=== PATIENT | female | born 1960 | race Caucasian/White ===

== ENCOUNTER 2022-08-30 07:26 | Observation (INO) ==
--- NOTE | 2022-07-31 12:21 | PAT Medication Instructions ---
Medication Instructions Date of Service July 31, 2022 Home Medications Celebrex 1 dose PO QAM biotin 1 mg tablet 1 mg PO QAM cholecalciferol (vitamin D3) 25 mcg (1,000 unit) tablet (Vitamin D3) 25 mcg PO QAM folic acid 3 tab PO QAM hydroxychloroquine 200 mg tablet (Plaquenil) 200 mg PO QAM methotrexate 1 dose WK multivitamin 1 tab PO QAM omeprazole magnesium 20 mg tablet,delayed release (Prilosec OTC) 20 mg PO DAILY PRN gerd ASK your surgeon for instructions Celebrex 1 dose PO QAM ASK your prescriber and surgeon hydroxychloroquine 200 mg tablet (Plaquenil) 200 mg PO QAM methotrexate 1 dose WK STOP taking 2 weeks before surgery biotin 1 mg tablet 1 mg PO QAM DO NOT take the morning of surgery cholecalciferol (vitamin D3) 25 mcg (1,000 unit) tablet (Vitamin D3) 25 mcg PO QAM folic acid 3 tab PO QAM multivitamin 1 tab PO QAM Take morning of surgery With a small sip of water, OTHERWISE NOTHING TO EAT OR DRINK AFTER MIDNIGHT: omeprazole magnesium 20 mg tablet,delayed release (Prilosec OTC) 20 mg PO DAILY PRN gerd (if needed) Other Notes If you have any questions please call us at [phone] or [phone] or [phone] or [phone]
--- NOTE | 2022-08-03 10:02 | Anesthesiology Consultation ---
Date of Service August 03, 2022 Assessment & Plan (1) Encounter for pre-operative examination: Chart Review Chart Review: Acceptable Risk for Surgery and Patient seen in Pre Admission Testing Pt currently scheduled as 23 hours observation. Discussed with Dr. Souza. If surgeon decides to change patient to Same Day Joint, patient would be acceptable risk for TSA, pending patient is motivated, has good support and surgeon's office completes [facility] preop requirements. Pt has pessary in place- encouraged patient to discuss with surgeon if it need removed DOS (pt can self remove/replace pessary) Pt states that PNB in the right shoulder have not been effective in the past - unsure if needed DOS - will discuss with anesthesiologist DOS Per PAT appt on 08/03/22, patient denies any recent travel or large group activities. Pt is vaccinated for Covid. Will leave to surgeon's discretion if preop Covid testing needed. Educated on importance of using Covid precautions one week prior to surgery History Surgery Operation Date: 08/30/22 12:25 Proposed Procedures p Right Reverse Shoulder Arthroplasty - Patric Garcia MD Height/Weight Height: 5 ft 8.5 in Weight: 58.9 kg Allergies Allergy/AdvReac Type Severity Reaction Status Date / Time etanercept [From Enbrel] Allergy Rash Verified 07/31/22 10:32 Medications Home Medications Medication Instructions Recorded Confirmed Last Taken Celebrex 1 dose PO QAM 07/31/22 07/31/22 Unknown folic acid 1 tab PO QAM 07/31/22 08/03/22 Unknown hydroxychloroquine 200 mg tablet 200 mg PO QAM 07/31/22 07/31/22 Unknown (Plaquenil) methotrexate 1 dose WK 07/31/22 07/31/22 Unknown multivitamin 1 tab PO QAM 07/31/22 07/31/22 Unknown omeprazole magnesium 20 mg 20 mg PO DAILY PRN gerd 07/31/22 07/31/22 Unknown tablet,delayed release (Prilosec OTC) biotin 500 mcg capsule 500 mcg PO DAILY 08/03/22 08/03/22 Unknown cholecalciferol (vitamin D3) 125 125 mcg PO DAILY 08/03/22 08/03/22 Unknown mcg (5,000 unit) tablet (Vitamin D3) Past Medical History Medical History Bladder prolapse Has pessary in place Heartburn occasional Osteoarthritis Prediabetes Diet controlled Rectal prolapse Has pessary in place Rheumatoid arthritis Follows with rheum- stable at this time Scoliosis Superficial thrombosis of leg hx 1980s Vaginal prolapse Has pessary in place Exercise / Class Metabolic Activity II 4-5 Yardwork/Stairs/Walk up hill (one flight of stairs- no chest pain or SOB ) Past Family History Family History Other No family history of adverse response to anesthesia Past Surgical History Surgical History History of arthroscopic knee surgery Rt History of arthroscopy of shoulder BL History of carpal tunnel release History of cataract surgery History of colonoscopy History of decompression of ulnar nerve History of surgery laser treatment varicose veins Past Anesthesia History No Hx of Anesthesia Complications (with exception to chills post op ) and No Family Hx of Anesthesia Complications History of PONV No Hx of PONV and No Hx of Motion Sickness Social History Smoking Status: Never smoker Do You Dip or Chew Tobacco: No Hx Alcohol Use: No Hx Substance Use: No substance use type: does not use Review of Systems Patient denies chest pain, shortness of breath, dyspnea on exertion, cough, wheezing, palpitations. No hx of seizures, stroke, CO, apnea/snoring. No hx of DVTs or blood transfusions Physical Exam Vital Signs VITALS BP 103/67 P 85 TEMP 98.1 SP02 98% RESP 16 Constitutional no acute distress ENMT Mouth: no TMJ clicking Thyromental Distance: > or= 3.5 Finger Breadths (3.5) Mallampati Class: II Neck neck extension not limited Respiratory normal respiratory effort; no respiratory distress Auscultation: lungs clear to auscultation bilaterally; no wheezes Cardiovascular Rate/Rhythm: regular rate and regular rhythm Heart Sounds: no murmur Vessels: no carotid bruit Musculoskeletal Spine: no pain with cervical ROM Extremities: extremities normal to inspection Psychiatric Orientation: alert Lab Results Anesthesia Preop Results Results Anesthesia Widget: WBC 4.08 K/ul (4.8-10.8) L 08/03/22 Hgb 14.6 g/dl (12.0-16.0) 08/03/22 Hct 43.6 % (34.1-44.9) 08/03/22 Plt 281 K/uL (130-400) 08/03/22 Na 141 mmol/L (136-145) 08/03/22 K 4.4 mmol/L (3.5-5.1) 08/03/22 Cl 103 mmol/L (98-107) 08/03/22 CO2 33 mmol/L (21-32) H 08/03/22 BUN 15 mg/dl (6-23) 08/03/22 Creat 0.67 mg/dl (0.6-1.2) 08/03/22 Glucose Level 107 mg/dl (70-99(Fasting)) H 08/03/22 PT 10.5 Seconds (9.0-12.0) 08/03/22 PTT 29.6 Seconds (21.0-31.0) 08/03/22 INR 1.0 (0.9-1.1) 08/03/22 HA1c 6.7 % (4.5-5.6) H 08/03/22 Urine Color Yellow 08/03/22 Urine Appearance Clear (Clear) 08/03/22 Urine pH 6.0 (4.5-7.5) 08/03/22 Urine Specific [place] 1.010 (1.000-1.030) 08/03/22 Urine Protein Negative (Negative) 08/03/22 Urine Glucose (UA) Negative (Negative) 08/03/22 Urine Ketones Negative (Negative) 08/03/22 Urine Blood Negative (Negative) 08/03/22 Urine Nitrite Negative (Negative) 08/03/22 Urine Bilirubin Negative (Negative) 08/03/22 Urine Urobilinogen Negative (Negative) 08/03/22 Urine Leukocyte Esterase 1+ (Negative) H 08/03/22 Urine WBC (Auto) 1-5 /hpf (0-5) 08/03/22 Urine RBC (Auto) 0-4 /hpf (0-4) 08/03/22 Urine Hyaline Casts (Auto) 1-5 /lpf (0-5) 08/03/22 Urine Epithelial Cells (Auto) 0-5 /lpf (0-5) 08/03/22 Urine Bacteria (Auto) Negative (Negative) 08/03/22 Blood Type A Positive 08/03/22 Antibody Screen NEGATIVE 08/03/22 Testing Electrocardiogram Date: 08/03/22 Findings: + NSR @ (75bpm ) Normal EKG per cardio. Chest X-Ray Date: 08/03/22 Findings: + NAD Cervical Spine Date: 08/03/22 FINDINGS: No fractures or subluxations are identified. Degenerative changes are noted in the cervical spine. The alignment is anatomic. Prevertebral soft tissues are within normal limits. IMPRESSION: Degenerative changes without evidence of acute abnormality. COVID-19 Risk Screen Screening Information COVID-19 Screen Date: 08/03/22 Exposure 21 Days Family/Household +COVID Last 21 Days: No Exposure 10 Days Any COVID Exposure Last 10 Days: No Symptoms Last 10 Days Experienced COVID Sx Last 10 Days: No + COVID 0-90 Days COVID + in Last 0-90 Days: No Risk Plan COVID Risk Plan: No Risk Identified Patient Education COVID Preop Screening Education Complete: Yes
--- NOTE | 2022-08-29 14:19 | History & Physical Report ---
Date of Service August 29, 2022 Assessment & Plan (1) Rotator cuff arthropathy of right shoulder: Plan: Treatment options discussed with patient. She has failed conservative measures. Risks, benefits and alternatives to surgery including but not limited to infection, DVT, pain, stiffness, need for revision surgery, damage to blood vessels, damage to nerves, PE, , were discussed with the patient and they wish to proceed. Plan for right reverse total shoulder arthroplasty scheduled for [facility] on 08/30/[address] Garcia. All questions answered. She will follow up post op. History of Present Illness Chief Complaint: Right shoulder pain Primary Care Provider: KELLEY Henderson 61yo female with PMHx significant for GERD, RA, DM who presents with ongoing right shoulder pain. Has failed conservative measures. Pain is interfering with her daily activity. Prior history of arthroscopy with rotator cuff repair and biceps tenodesis. Patient denies headaches, sweats, fevers, chills, double vision, blurred vision, cough, sore throat, dysphagia, chest pain, sob, wheezing, n/v/d/c, numbness, tingling, fatigue, urinary symptoms, mood disorders. ROS positive for Right shoulder pain and stiffness. Allergies Allergy/AdvReac Type Severity Reaction Status Date / Time etanercept [From Enbrel] Allergy Rash Verified 07/31/22 10:32 Home Medications Medication Instructions Recorded Confirmed Type Celebrex 1 dose PO QAM 07/31/22 07/31/22 History folic acid 1 tab PO QAM 07/31/22 08/03/22 History hydroxychloroquine 200 mg tablet 200 mg PO QAM 07/31/22 07/31/22 History (Plaquenil) methotrexate 1 dose WK 07/31/22 07/31/22 History multivitamin 1 tab PO QAM 07/31/22 07/31/22 History omeprazole magnesium 20 mg 20 mg PO DAILY PRN gerd 07/31/22 07/31/22 History tablet,delayed release (Prilosec OTC) biotin 500 mcg capsule 500 mcg PO DAILY 08/03/22 08/03/22 History cholecalciferol (vitamin D3) 125 125 mcg PO DAILY 08/03/22 08/03/22 History mcg (5,000 unit) tablet (Vitamin D3) Past Med/Surg History Medical History Bladder prolapse Has pessary in place Heartburn occasional Osteoarthritis Prediabetes Diet controlled Rectal prolapse Has pessary in place Rheumatoid arthritis Follows with rheum- stable at this time Scoliosis Superficial thrombosis of leg hx 1980s Vaginal prolapse Has pessary in place Surgical History History of arthroscopic knee surgery Rt History of arthroscopy of shoulder BL History of carpal tunnel release History of cataract surgery History of colonoscopy History of decompression of ulnar nerve History of surgery laser treatment varicose veins Family History Other No family history of adverse response to anesthesia Social History Smoking Status: Never smoker Second Hand Exposure: No; Hx Alcohol Use: No Hx Substance Use: No Preferred Language: Tajik Communication Ability: Effective Director Of Testing Required: No Beliefs That Will Affect Care: None Current Living Situation: Spouse Feels Safe at Home: Yes Assistive Devices: Contacts and Glasses Review of Systems All systems reviewed & are unremarkable except as noted in HPI & below Physical Exam Constitutional: well developed and well nourished; no acute distress Eyes: PERRL, conjunctivae normal, anicteric sclerae ENMT: external ear and nose normal, oropharynx normal Neck: trachea midline, no thyromegaly Respiratory: normal respiratory effort, lungs clear to auscultation Cardiovascular: RRR, no murmur, no edema Musculoskeletal: Right shoulder: Tenderness anterior-inferior acromion, anterior glenoid. Positive impingement signs. FF to 170 degrees, abduction to 160 degrees. 4-/5 ER, 4+/5 IR, 3+/5 abduction Skin: no rashes, warm and dry Neurologic: patellar DTR's 2+ bilat, sensation intact Psychiatric: A+Ox3, euthymic affect Results & Data ([facility]) Diagnostic Findings Right shoulder X-rays demonstrate humeral head elevation with fragmentation and erosion of an os acromiale fragment. She has an MRI demonstrating a massive retracted full-thickness rotator cuff tear
[~2022-08-30 07:26] MED LIST: ACETAMINOPHEN 500 MG TAB PO SCH; BUPIVACAINE 0.5 % 5 MG/1 ML PF 10ML VIAL ONE; CeleBREX 200 MG CAP PO SCH; FAMOTIDINE 20 MG TAB PO SCH; GABAPENTIN 600 MG DOSE PO SCH; LIDOCAINE 2% 20 MG/ML 5 ML SYR IV ONE; LR 15ML/HR IV SCH; METOCLOPRAMIDE HCL 10 MG TABLET PO SCH; MIDAZOLAM HCL 1 MG/ML 2ML VIAL ONE; ONDANSETRON INJ 2 MG/ML 2 ML VIAL ONE; PROPOFOL IV EMULSION 10 MG/ML 20 ML VIAL IV ONE; ROCURONIUM BROMIDE 10 MG/ML 5 ML VIAL IV ONE; TRANEXAMIC ACID 1,000 MG **IV Intra-op IV SCH; TRANEXAMIC ACID 1,000 MG **IV Pre-op IV SCH; ceFAZolin 2000MG 2,000 MG/15 ML SYR IV SCH; dexAMETHasone 4 MG TAB PO SCH; fentaNYL citrate 100 MCG/2 ML VIAL ONE
[2022-08-30] MEDS ORDERED: ATROPINE SULFATE 0.1 MG/ML 10ML SYR IV PRN (07:38)
[2022-08-30] MEDS ORDERED: ePHEDrine sulfate 50 MG/ML AMP IV PRN (07:38)
[2022-08-30] MEDS ORDERED: fentaNYL citrate 100 MCG/2 ML VIAL IV PRN (07:38)
[2022-08-30] MEDS ORDERED: HYDROmorphone INJ 1 MG/ML SYRINGE IV PRN (07:38)
[2022-08-30] MEDS ORDERED: PHENYLEPHRINE 100MCG/ML 5ML SYR IV PRN (07:38)
[2022-08-30] MEDS ORDERED: MEPERIDINE HCL 25 MG/ML CARP/VIAL IV PRN (07:38)
[2022-08-30] MEDS ORDERED: LABETALOL HCL IV 5 MG/ML 20ML IV PRN (07:38)
[2022-08-30] MEDS ORDERED: ONDANSETRON INJ 2 MG/ML 2 ML VIAL IV PRN ×2 (07:38→14:54)
--- NOTE | 2022-08-30 07:43 | History & Physical Bridge Note ---
Date of Service August 30, 2022 History & Physical Bridge Note I have examined the patient, reviewed the History & Physical and in the interval since the performance of the History & Physical I have noted the following changes of clinical significance: no changes noted
[2022-08-30] MEDS ORDERED: ePHEDrine sulfate 50 MG/ML AMP ONE (11:45)
[2022-08-30] MEDS ORDERED: PHENYLEPHRINE HCL 10 MG/ML VIAL ONE (11:45)
[2022-08-30] MEDS ORDERED: NEOSTIGMINE METHYLSULFATE 1 MG/ML 10ML VIAL ONE (11:46)
[2022-08-30] MEDS ORDERED: GLYCOPYRROLATE 0.2 MG/ML VIAL ONE (11:46)
--- NOTE | 2022-08-30 12:09 | Operative Report ---
Post Operative Report Pre & Post Diagnosis Operation Date: 08/30/22 09:35 Pre-Op Diagnosis: Right Shoulder Osteoarthritis glenohumeral joint, rotator cuff arthropathy with failed rotator cuff repair, os acromiale Post-Op Diagnosis: Right Shoulder Osteoarthritis glenohumeral joint, rotator cuff arthropathy with failed rotator cuff repair, os acromiale, biceps dislocation with tendinopathy biceps tendon. I identified the patient and participated in the time-out.: Yes Procedure Operation Date: 08/30/22 09:35 Actual Procedures p Right Reverse Shoulder Arthroplasty(Right), biceps tenodesis, excision suture anchors and suture material- Patric Garcia MD Surgeon Patric Garcia MD Vehicle Cost Engineer Taco LARSEN Estimated Blood Loss 40 Findings Consistent with Post-Op Diagnosis Specimens Humeral head cut Drains 2 Hemovac Anesthesia Type General Regional Complications none Disposition Disposition: Recovery Room Indications 61-year-old female with history of rotator cuff repair in the past with failed rotator cuff repair rotator cuff arthropathy now advanced glenohumeral arthritis. Description of Procedure The patient was taken to the operating room and anesthetized under regional block and general anesthetic. The patient was positioned on the operating table in a 30 beach chair position with a towel roll under the medial border of the right scapula. The arm was draped free to be able to manipulate the shoulder as needed. The right upper extremity was prepped and draped in usual sterile fashion. Exam demonstrated thin individual good passive range of motion 180 degrees flexion 90 internal and external rotation 100 degrees abduction with subacromial crepitation with thin individual with excellent musculature. An anterior deltopectoral approach was performed. A longitudinal incision was made in the deltopectoral interval. The skin was incised sharply. Subcutaneous flaps were elevated off the fascia. The cephalic vein was dissected out and retracted lateral with the deltoid. The clavipectoral fascia was divided at the lateral margin of the conjoined tendon and extended up to the CA ligament. The following findings were noted: Subscapularis had a partial tear of the upper aspect and a dislocation of the biceps through that. the proximal biceps tendon had tendinopathy and was scarred into the subscapularis tendon. The supraspinatus tendon and infraspinatus were torn, the teres minor was intact. There was thickened scarred subacromial bursa. The upper centimeter of the pectoralis was released for inferior exposure. A self-retaining retractor was placed. The biceps tendon was tenodesed to the pectoralis tendon with #2 FiberWire. The proximal biceps was resected up to the part that was scarred into the subscapularis tendon and this portion of the tendon which is left intact within the tendon to add collagen to the repair. It is noted that there was no intra-articular portion of the subscapularis tendon still attached to the greater tuberosity. The subscapularis muscle fibers were split longitudinally at the level of the circumflex vessels. The circumflex vessels were identified and tied off with silk ties and divided laterally. A Kitner elevator was used to free up the inferior fibers of the subscapularis off of the capsule. The axillary nerve was identified with a tug test and protected with a blunt John retractor between the nerve and the capsule. The subscapularis tendon was then taken down off of the lesser tuberosity subperiosteally, a Vicryl traction suture was placed and a subperiosteal dissection was performed along the neck of the humerus as the arm was gradually externally rotated exposing the humeral head. The humeral head findings demonstrated arthritic changes with some exposed bone and articular thinning with inferior osteophytes. retractors were readjusted and the inferior osteophytes were all resected using an artist chisel. A Panda elevator was used to assist in releasing the capsule of the neck of the humerus. The capsule was divided with Garcia scissors down to the glenoid released off the anterior glenoid and the rotator interval was released to meet the capsular release and a 360 release of the subscapularis was accomplished. A Fukuda retractor was placed into the joint retracting the humeral head posterior. Glenoid findings demonstrated posterior superior glenoid articular wear down to bone grade 4 with some eburnation but no major bone loss. There was still some anterior to mid and inferior articular cartilage on the glenoid. The labrum was intact but degenerative. The intra-articular biceps was absent. The labrum was resected. an anterior-inferior and posterior inferior capsular release were performed with electrocautery and a Panda elevator on bone with the axillary nerve protected inferiorly by the retractor. Attention was then taken to the humeral preparation. The cutting guide was placed into the humeral head. It was positioned at 20 of retroversion. Oscillating saw was used to resect the humeral head giving the cut above the level of the posterior rotator cuff insertion site. The cut went through 1 anchor and another anchor was removed from the metaphysis. These were peek plastic type suture anchors with nonabsorbable suture material. There are also some cystic areas within the me taphysis that were curetted out. The humerus was then prepared for the stem. I used the ascend flex stem from [employer]. The sizing broaches were used followed by trial broaches up to a size 3B long which had the appropriate fit and fill. The appropriate sized cut protector was placed. The humerus was then retracted posterior to the glenoid. The glenoid was sized for a 25 baseplate. The guide for the baseplate was positioned in a 10 inferior tilt and the central drill hole was made. The reamer for the 25 baseplate was used. The central drill was widened for the peg. The Trendratingnier aequalis hydroxyapatite-coated 25 mm standard baseplate was impacted into position. The base plate was transfixed with superior and inferior locking screws and anterior and posterior compression screws with stable fixation. The fan reamer was used for the 36 millimeter glenoid sphere. After irrigation the 36 mm glenoid sphere was impacted onto the baseplate and the security screw was tightened. Attention was taken back to the humerus. The cut protector was removed and the +0 high offset humeral tray trial was assembled to the trial stem rotated appropriately to get bony coverage and then screwed in position. A trial reduction was performed. A +6 trial insert demonstrated good stability and no shuck. The trials were removed. 3 drill holes are made into the harder bone in the bicipital groove area and 3 #5 FiberWire sutures were placed transosseously. The canal was irrigated with pulsatile lavage saline solution. The final component was assembled. The final component was ascend flex 3B long PTC stem with a plus or high offset tray and a +6 reversed polyethylene insert. This was then impacted into the humerus with a tight press-fit. It was reduced to the glenoid sphere. Stability was verified. Subscapularis was repaired with the #5 FiberWire sutures using Won-Nishant suture technique. Lateral row soft tissue repair was performed with #2 FiberWire [id number] sutures. The pectoralis was repaired with #2 FiberWire [id number] sutures reinforcing the biceps tendon tenodesis. The arm was taken through a range of motion which demonstrated 160 degrees forward f lexion 110 degrees abduction and internal and external rotation to 70 degrees. The implant was stable through the range of motion tested. The wound was copiously irrigated. 2 Hemovac drains were placed. The deltopectoral interval was closed with [id number] #1 Vicryl sutures. The subcutaneous tissues were closed with 2-0 Vicryl sutures. The skin was closed with nikolai. Sterile dressings were applied and a shoulder immobilizer. Taco LARSEN, my physician construction management assistant acted as broker assistant throughout the procedure .He performed functions including patient positioning, arm positioning, prepping and draping, soft tissue retraction, instrument management, suture management and performed the subcutaneous and skin closure and will participate in the postoperative care of the patient. I attest to the content of the Intraoperative Record and any orders documented therein. Any exceptions are noted below.
--- NOTE | 2022-08-30 13:05 | Anesthesiology Progress Note ---
Date of Service August 30, 2022 Anesthesia Post Procedure Vital Signs Vital Signs: Temp Pulse Pulse Resp BP Pulse Ox O2 Del Method 08/30/22 12:50 60 14 113/70 99 Room Air 08/30/22 12:40 64 12 112/69 100 Oxymask 08/30/22 12:30 62 14 116/71 100 Oxymask 08/30/22 12:20 65 14 110/69 100 Oxymask 08/30/22 12:11 36.1 C L 76 12 111/67 100 Oxymask 08/30/22 08:08 36.5 C 73 20 130/83 100 Room Air O2 Flow Rate 08/30/22 12:50 08/30/22 12:40 10 08/30/22 12:30 10 08/30/22 12:20 10 08/30/22 12:11 10 08/30/22 08:08 Transfer of Care Handoff Completed per policy Notes Mental Status: alert / awake / arousable Patient Amnestic to Procedure: Yes Nausea / Vomiting: adequately controlled Pain: adequately controlled Airway Patency, RR, SpO2: stable & adequate BP & HR: stable & adequate Hydration State: stable & adequate Anesthetic Complications: no major complications apparent and Pt Satisfied with anesthetic care
--- NOTE | 2022-08-30 13:10 | XRay Report ---
RIGHT SHOULDER 2 VIEWS CLINICAL HISTORY: Postoperative examination FINDINGS: 2 portable views of the right shoulder are obtained. The skeletal structures are osteopenic . A right shoulder arthroplasty is in near anatomic alignment. No acute fracture is seen. Skin clips, a surgical drain, subcutaneous gas, and soft tissue swelling overlying the shoulder are expected pos toperative changes. The imaged right lung parenchyma appears clear. IMPRESSION: Expected postoperative findings status post right shoulder arthroplasty. No acute fractur e is seen. Electronically signed by: Johnny Suazo M.D. 08/30/2022 1:08 PM
[2022-08-30] MEDS ORDERED: FLUTICASONE PROPIONATE NA SPR 16 GM BTL PRN (14:54)
[2022-08-30] MEDS ORDERED: NALOXONE HCL 0.4 MG/1 ML VIAL/CARP IV PRN (14:54)
[2022-08-30] MEDS ORDERED: oxyCODONE HCL IR 5 MG TAB (IMMEDIATE RELEASE) PO PRN (14:54)
[2022-08-30] MEDS ORDERED: bisacodyL 10 MG SUPP PR PRN (14:54)
[2022-08-30] MEDS ORDERED: diphenhydrAMINE 50 MG/ML VIAL IV PRN (14:54)
[2022-08-30] MEDS ORDERED: MAGNESIUM HYDROXIDE SUSP 30 ML UDC PO PRN (14:54)
[2022-08-30] MEDS ORDERED: HYDROmorphone INJ 0.5 MG/0.5 ML SYR IV PRN (14:54)
--- NOTE | 2022-08-30 15:06 | Hospitalist Consultation ---
Date of Consultation August 30, 2022 Assessment & Plan (1) GERD (gastroesophageal reflux disease): Leda is a 61-year-old female with a past medical history of GERD, rheumatoid arthritis on methotrexate and hydroxychloroquine who underwent total reverse shoulder arthroplasty, we have been consulted for postoperative medical management. Rotator cuff arthropathy s/p Right Reverse Shoulder Arthroplasty(Right), biceps tenodesis, excision suture anchors and suture material- Patric Garcia MD Ambulation recommendations/restrictions, DVT prophylaxis, pain control per primary team Hemodynamically stable postoperatively Rheumatoid arthritis Patient has discussed her MTX/hydroxychloroquine and held for 2 weeks preop, was told to hold for 2 weeks postoperatively. This is reasonable. If patient were to have issues with flares in the future, could continue methotrexate and hydroxychloroquine through perioperative period if needed [PMID: [id number], [id number], [id number]]. Patient is not currently on a biologic DMARD. Plans to return to [facility] on outpatient follow-up, has not been on any biologic in a year. If she resumes these this would need to be held for future surgery Follow clinically at this time Avoid NSAIDs as noted GERD Continue Protonix, dose increased to 40 mg daily in the perioperative period. Patient has had poorly controlled GERD leading up to her procedure, but has not had melena/bleeding or epigastric pain. Would continue 40 mg Protonix dose for 6 weeks and then taper and attempt to cross 2 H2-rodrigo to reduce and renal/demineralization effects at that point if possible. If Celebrex needs to be resumed for chronic pain may need continued prophylaxis at that point Avoid NSAIDs. given aspirin use for prophylaxis, steroid administration, recent surgery, history of GERD Celebrex temporarily held Continue Tylenol Prediabetes Goal BSG [id number], POC glucose 130 Last A1c 6.7%, diet controlled Patient reportedly was supposed to start metformin as outpatient, will be doing this on return home but had not yet started at time of admission Will cover with weight-based conservative SSI while inpatient. Continue plan to start metformin when she returns home. Glucose checks AC/at bedtime - AM BMP to follow fasting BSG and Cr Patient is doing well hemodynamically stable at bedside. Medicine will sign off at this time, if additional concerns or abnormalities arise please feel free to contact us for continued review and recommendations. DVT prophylaxis: Per primary team Disposition: Medical/surgical Diet: DM 2 CODE STATUS: Full code History of Present Illness Attending Physician: Patric Garcia MD History of Present Illness Leda is a 61-year-old female with a past medical history of GERD, rheumatoid arthritis on methotrexate and hydroxychloroquine who underwent total reverse shoulder arthroplasty, we have been consulted for postoperative medical management. Leda is seen at the bedside with her Luther present. She feels a little groggy from anesthesia, but otherwise well had time bedside assessment. She is not having any chest pain, chest pressure, shortness of breath. She is a drain in her right shoulder surgical site draining sanguinous/serosanguineous material. She reports that she has a history of GERD for which she takes a PPI 20 mg daily. She has not had a history of GI bleeding, Jo's esophagus but has been on this for a long time. She feels like she has had difficulty with GERD in the last month and increased stress due to her shoulders, and has had intermittent feelings of reflux in the center of her chest. She does not have epigastric tenderness. She does take Celebrex daily. No melena/bright red blood per rectum. No fever/chills/syncope/presyncope. She is not on Pepcid normally. She reports she has a history of rheumatoid arthritis and while she does not get flares she has had a progression of joint disease which is multifactorial between RA and OA. She has been on multiple Biologics in the past, unfortunately was not able to tolerate Enbrel and developed an allergic rash, and has been on a variety of other Biologics including Humira which have not worked as well. She has not been on a biologic in the last year, anticipates returning to a biologic probably Humira but this is been deferred especially knowing that she was going to undergo orthopedic surgery this year. She does continue to take both Plaquenil and methotrexate. Other than GERD she denies any chest pain/chest pressure. No orthostatic symptoms, no orthopnea. Denies focal weakness. Medical History: Reviewed Medications: Reviewed Surgical History: Reviewed Allergies: Reviewed Social History: Reviewed Code Status: Full code Allergies Allergy/AdvReac Type Severity Reaction Status Date / Time etanercept [From Enbrel] Allergy Rash Verified 08/30/22 08:08 Home Medications Medication Instructions Recorded Confirmed Type Celebrex 1 dose PO QAM 07/31/22 08/30/22 History folic acid 1 tab PO QAM 07/31/22 08/30/22 History hydroxychloroquine 200 mg tablet 200 mg PO QAM 07/31/22 08/30/22 History (Plaquenil) methotrexate 1 dose WK 07/31/22 08/30/22 History multivitamin 1 tab PO QAM 07/31/22 08/30/22 History biotin 500 mcg capsule 500 mcg PO DAILY 08/03/22 08/30/22 History cholecalciferol (vitamin D3) 125 125 mcg PO DAILY 08/03/22 08/30/22 History mcg (5,000 unit) tablet (Vitamin D3) fluticasone propionate 50 1 spray intranasal DAILY PRN 08/30/22 08/30/22 History mcg/actuation nasal Allergy Symptoms spray,suspension pantoprazole 20 mg tablet,delayed 20 mg PO DAILY 08/30/22 08/30/22 History release (Protonix) Patient History Medical History Bladder prolapse Has pessary in place Heartburn occasional Osteoarthritis Prediabetes Diet controlled Rectal prolapse Has pessary in place Rheumatoid arthritis Follows with rheum- stable at this time Scoliosis Superficial thrombosis of leg hx 1980s Vaginal prolapse Has pessary in place Surgical History History of arthroscopic knee surgery Rt History of arthroscopy of shoulder BL History of carpal tunnel release History of cataract surgery History of colonoscopy History of decompression of ulnar nerve History of surgery laser treatment varicose veins Family History Other No family history of adverse response to anesthesia Social History Smoking Status: Never smoker Second Hand Exposure: No; Do You Dip or Chew Tobacco: No; Hx Alcohol Use: No Hx Substance Use: No Preferred Language: Mongolian Communication Ability: Effective Blasting Clay Miner Required: No Beliefs That Will Affect Care: None Current Living Situation: Spouse Feels Safe at Home: Yes Safety Concerns: Feels Safe At This Time Assistive Devices: Contacts and Glasses Review of Systems Review of Systems: All systems reviewed & are unremarkable except as noted in HPI & below Physical Exam Physical Exam: General: A&Ox3. NAD. Somnolent, but is not fall asleep during exam and answers questions appropriately HEENT: Atraumatic, normocephalic. Vision/hearing grossly intact. Pupils equal and reactive to light Pulm: Lungs grossly clear, breathing unlabored symmetrical chest rise. No increase in work of breathing. No respiratory distress. Cardiac: RRR, -mrg. Radial pulses intact and symmetrical. Abdominal: No epigastric tenderness, no other tenderness, no rebound, nondistended, soft. BS present. Extremities: Right shoulder in postoperative dressing, drain in place draining sanguinous/slightly serosanguineous material. Sensation to soft touch in fingertips improving, sensation normal in left hand. Radial pulse is intact bilaterally Results & Data Results & Data ([facility]) Vital Signs (Past 12 Hours) Vital Signs Temp Pulse Pulse Resp BP Pulse Ox O2 Del Method 08/30/22 14:45 36.5 C 92 H 16 109/67 96 Room Air 08/30/22 13:55 36.7 C 71 12 118/70 96 Room Air 08/30/22 13:40 77 13 109/66 97 Room Air 08/30/22 13:10 66 12 114/67 99 Room Air 08/30/22 12:50 60 14 113/70 99 Room Air 08/30/22 13:25 67 14 120/70 99 Room Air 08/30/22 13:00 36.1 C L 60 12 110/70 99 Room Air 08/30/22 12:40 64 12 112/69 100 Oxymask 08/30/22 12:30 62 14 116/71 100 Oxymask 08/30/22 12:20 65 14 110/69 100 Oxymask 08/30/22 12:11 36.1 C L 76 12 111/67 100 Oxymask 08/30/22 08:08 36.5 C 73 20 130/83 100 Room Air O2 Flow Rate 08/30/22 14:45 08/30/22 13:55 08/30/22 13:40 08/30/22 13:10 08/30/22 12:50 08/30/22 13:25 08/30/22 13:00 08/30/22 12:40 10 08/30/22 12:30 10 08/30/22 12:20 10 08/30/22 12:11 10 08/30/22 08:08 PG Care Time/CCT Total # of Minutes Spent Total Time Spent with Patient: Total time spent is greater than 50% in coordination of care (as documented) at patient's floor/unit and/or counseling patient: Coding Level of Care Code INP/OBS CONSULT LVL 4, 60 MIN Diagnoses GERD (gastroesophageal reflux disease) K21.9
[2022-08-30] MEDS: SODIUM CHLORIDE 0.9% 1000ML 1,000 ML IV SCH (15:26)
[2022-08-30] MEDS: ACETAMINOPHEN 500 MG TAB PO SCH ×2 (15:28→20:35)
[2022-08-30] MEDS ORDERED: DEXTROSE 50% 50 ML SYRINGE IV PRN (15:44)
[2022-08-30] MEDS ORDERED: CARBOHYDRATES FOR HYPOGLYCEMIA PO PRN (15:44)
[2022-08-30] MEDS ORDERED: GLUCAGON FOR INJ 1 MG VIAL SQ PRN (15:44)
[2022-08-30] MEDS ORDERED: GLUCOSE 40% GEL 15 GM TUBE PO PRN (15:44)
[2022-08-30] MEDS ORDERED: GLUCOSE 10 TAB/TUBE PO PRN (15:44)
[2022-08-30] MEDS: INSULIN ASPART PER UNIT SC SCH ×2 (18:18→20:28)
[2022-08-30] MEDS: ceFAZolin 1000MG 1,000 MG/7.5 ML SYR IV SCH (18:35)
[2022-08-30] MEDS: DOCUSATE SODIUM 100 MG CAP PO SCH (20:35)
[2022-08-31] MEDS: ceFAZolin 1000MG 1,000 MG/7.5 ML SYR IV SCH (00:10)
[2022-08-31] MEDS: SODIUM CHLORIDE 0.9% 1000ML 1,000 ML IV SCH (01:53)
[2022-08-31] MEDS: ACETAMINOPHEN 500 MG TAB PO SCH ×2 (05:01→12:13)
--- NOTE | 2022-08-31 07:05 | Orthopedic Progress Note ---
Date of Service August 31, 2022 Assessment & Plan (1) Rotator cuff arthropathy of right shoulder: Plan: Postop day #1 right reverse total shoulder arthroplasty -PT/OT: Elbow/wrist/hand motion, shrugs, pendulums. No formal therapy of his shoulder. -AM labs pending -DVT prophylaxis: SCDs, aspirin 81 mg daily -Pain management as written -Discharge planning: Plan on discharge home later today. Admission and Anticipated Discharge Date Admission Date: August 30, 2022 Subjective Patient is postop day #1 right reverse total shoulder arthroplasty. She is doing well this morning. Pain is well controlled. No other complaints. Denies chest pain, shortness of breath, nausea/vomiting/diarrhea, headache/dizziness. Review of Systems Review of Systems: All systems reviewed & are unremarkable except as noted in Subjective Physical Exam Physical Exam: Right shoulder: Dressing is clean, dry, intact. Sling in place. Fingers are mobile with good corporate bond trader strength. Hemovac on suction. Distally neurovascular status and sensation intact. Constitutional: WD/WN, vitals as above Results & Data ([facility]) Vital Signs (Past 12 Hours) Vital Signs Temp Pulse Pulse Resp BP Pulse Ox O2 Del Method 08/31/22 04:35 36.8 C 81 16 111/71 96 Room Air 08/30/22 23:18 93 H 96 Room Air 08/30/22 22:31 36.8 C 98 H 18 104/63 95 Room Air
[2022-08-31] MEDS ORDERED: MULTIVITAMIN TAB PO SCH ×2 (09:00)
[2022-08-31] MEDS ORDERED: FOLIC ACID 1 MG TAB PO SCH (09:00)
[2022-08-31] MEDS ORDERED: PANTOprazole 40 MG TAB PO SCH ×2 (09:00)
[2022-08-31] MEDS ORDERED: ASPIRIN 81 MG ECTAB PO SCH (09:00)
[2022-08-31] MEDS ORDERED: CELEBREX 200 MG PO SCH (09:00)
[2022-08-31] MEDS ORDERED: BIOTIN 500 MCG PO SCH (09:00)
[2022-08-31] MEDS ORDERED: CHOLECALCIFEROL 5,000 UNITS 125 MCG TAB PO SCH (09:00)
[2022-08-31 09:16] LABS: Basophils # (auto) 0.02 K/uL (0-0.2); Basophils % (auto) 0.3 %; Eosinophils # (auto) 0.04 K/uL (0-0.50); Eosinophils % (auto) 0.7 %; Hematocrit (blood only) 37.2 % (34.1-44.9); Hemoglobin 12.4 g/dl (12.0-16.0); Immature Granulocytes # (auto) 0.02 K/uL (0.00-0.02); Immature Granulocytes % (auto) 0.3 %; Lymphocytes # (auto) 1.05 K/uL (1.2-3.4); Lymphocytes % (auto) 18.2 %; Mean Corpuscular Hgb Conc 33.3 g/dL (32.0-36.0); Monocytes # (auto) 0.61 K/uL (0.24-0.82); Monocytes % (auto) 10.6 %; Neutrophils # (auto) 4.04 K/uL (1.4-6.5); Neutrophils % (auto) 69.9 %; Platelet Count 235 K/uL (130-400); RDW Coefficient of Variation 12.6 % (11.5-14.5); White Blood Count 5.78 K/ul (4.8-10.8)
[2022-08-31] MEDS: INSULIN ASPART PER UNIT SC SCH ×2 (09:20→12:46)
[2022-08-31] MEDS: DOCUSATE SODIUM 100 MG CAP PO SCH (09:24)
[2022-08-31 09:50] LABS: BUN Creatinine Ratio 24.2 (10-20); Calcium 8.2 mg/dl (8.5-10.1); Creatinine Clr Calc Pharmacy 85.6 ml/min; Est GFR (African American) 111.2 ml/min; Potassium 3.6 mmol/L (3.5-5.1)
--- NOTE | 2022-09-01 13:46 | Discharge Summary ---
Date of Service September 01, 2022 Admission HPI Per Admitting Provider 61yo female with PMHx significant for GERD, RA, DM who presents with ongoing right shoulder pain. Has failed conservative measures. Pain is interfering with her daily activity. Prior history of arthroscopy with rotator cuff repair and biceps tenodesis. Patient denies headaches, sweats, fevers, chills, double vision, blurred vision, cough, sore throat, dysphagia, chest pain, sob, wheezing, n/v/d/c, numbness, tingling, fatigue, urinary symptoms, mood disorders. ROS positive for Right shoulder pain and stiffness. Admission Exam Per Admitting Provider Constitutional: well developed and well nourished; no acute distress Eyes: PERRL, conjunctivae normal, anicteric sclerae ENMT: external ear and nose normal, oropharynx normal Neck: trachea midline, no thyromegaly Respiratory: normal respiratory effort, lungs clear to auscultation Cardiovascular: RRR, no murmur, no edema Musculoskeletal: Right shoulder: Tenderness anterior-inferior acromion, anterior glenoid. Positive impingement signs. FF to 170 degrees, abduction to 160 degrees. 4-/5 ER, 4+/5 IR, 3+/5 abduction Skin: no rashes, warm and dry Neurologic: patellar DTR's 2+ bilat, sensation intact Psychiatric: A+Ox3, euthymic affect Principal Diagnosis Right shoulder rotator cuff arthropathy Discharge Exam Right shoulder: Dressing is clean, dry, intact. Sling in place. Fingers are mobile with good forensic nurse strength. Hemovac on suction. Distally neurovascular status and sensation intact. Constitutional WD/WN, vitals as above Discharge Data Allergies Allergy/AdvReac Type Severity Reaction Status Date / Time etanercept [From Enbrel] Allergy Rash Verified 08/30/22 08:08 Consultations 08/25/22 10:03 Consult Hospitalist Routine Procedures Performed Operation Date: 08/30/22 09:35 Actual Procedures p Right Reverse Shoulder Arthroplasty(Right) - Patric Garcia MD Ordered Studies 08/30/22 05:00 US - OR guided needle placemen Routine Hospital Course (1) Rotator cuff arthropathy of right shoulder: Postop day #1 right reverse total shoulder arthroplasty -PT/OT: Elbow/wrist/hand motion, shrugs, pendulums. No formal therapy of his shoulder. -AM labs pending -DVT prophylaxis: SCDs, aspirin 81 mg daily -Pain management as written -Discharge planning: Plan on discharge home later today. Lab Results 08/30/22 08/30/22 08/30/22 Range/Units 07:49 17:30 20:22 WBC (4.8-10.8) K/ul RBC (3.93-5.22) M/uL Hgb (12.0-16.0) g/dl Hct (34.1-44.9) % MCV (80.0-100.0) fL MCH (25.0-34.0) pg MCHC (32.0-36.0) g/dL RDW Std Deviation (36.4-46.3) fL RDW Coeff of Emma (11.5-14.5) % Plt Count (130-400) K/uL MPV (9.4-12.3) fL Immature Gran % (Auto) % Neut % (Auto) % Lymph % (Auto) % Cecil % (Auto) % Eos % (Auto) % Baso % (Auto) % Neut # (Auto) (1.4-6.5) K/uL Lymph # (Auto) (1.2-3.4) K/uL Cecil # (Auto) (0.24-0.82) K/uL Eos # (Auto) (0-0.50) K/uL Baso # (Auto) (0-0.2) K/uL Immature Gran # (Auto) (0.00-0.02) K/uL Sodium (136-145) mmol/L Potassium (3.5-5.1) mmol/L Chloride (98-107) mmol/L Carbon Dioxide (21-32) mmol/L Anion Gap (3-11) BUN (6-23) mg/dl Creatinine (0.6-1.2) mg/dl Est Cr Clr Drug Dosing ml/min Est GFR ( Amer) ml/min Est GFR (Non-Af Amer) ml/min BUN/Creatinine Ratio (10-20) Glucose (70-99(Fasting)) mg/dl POC Glucose 130 H 141 H 131 H (70-99) mg/dl Calcium (8.5-10.1) mg/dl SARS-CoV-2, RNA, NAAT (NEGATIVE) 08/30/22 08/31/22 08/31/22 Range/Units Unknown 08:05 08:05 WBC 5.78 (4.8-10.8) K/ul RBC 4.00 (3.93-5.22) M/uL Hgb 12.4 (12.0-16.0) g/dl Hct 37.2 (34.1-44.9) % MCV 93.0 (80.0-100.0) fL MCH 31.0 (25.0-34.0) pg MCHC 33.3 (32.0-36.0) g/dL RDW Std Deviation 43.0 (36.4-46.3) fL RDW Coeff of Emma 12.6 (11.5-14.5) % Plt Count 235 (130-400) K/uL MPV 9.0 L (9.4-12.3) fL Immature Gran % (Auto) 0.3 % Neut % (Auto) 69.9 % Lymph % (Auto) 18.2 % Cecil % (Auto) 10.6 % Eos % (Auto) 0.7 % Baso % (Auto) 0.3 % Neut # (Auto) 4.04 (1.4-6.5) K/uL Lymph # (Auto) 1.05 L (1.2-3.4) K/uL Cecil # (Auto) 0.61 (0.24-0.82) K/uL Eos # (Auto) 0.04 (0-0.50) K/uL Baso # (Auto) 0.02 (0-0.2) K/uL Immature Gran # (Auto) 0.02 (0.00-0.02) K/uL Sodium 140 (136-145) mmol/L Potassium 3.6 (3.5-5.1) mmol/L Chloride 107 (98-107) mmol/L Carbon Dioxide 27 (21-32) mmol/L Anion Gap 6 (3-11) BUN 15 (6-23) mg/dl Creatinine 0.62 (0.6-1.2) mg/dl Est Cr Clr Drug Dosing 85.6 ml/min Est GFR ( Amer) 111.2 ml/min Est GFR (Non-Af Amer) 96.0 ml/min BUN/Creatinine Ratio 24.2 H (10-20) Glucose 107 H (70-99(Fasting)) mg/dl POC Glucose (70-99) mg/dl Calcium 8.2 L (8.5-10.1) mg/dl SARS-CoV-2, RNA, NAAT NEGATIVE (NEGATIVE) 08/31/22 08/31/22 Range/Units 08:17 12:12 WBC (4.8-10.8) K/ul RBC (3.93-5.22) M/uL Hgb (12.0-16.0) g/dl Hct (34.1-44.9) % MCV (80.0-100.0) fL MCH (25.0-34.0) pg MCHC (32.0-36.0) g/dL RDW Std Deviation (36.4-46.3) fL RDW Coeff of Emma (11.5-14.5) % Plt Count (130-400) K/uL MPV (9.4-12.3) fL Immature Gran % (Auto) % Neut % (Auto) % Lymph % (Auto) % Cecil % (Auto) % Eos % (Auto) % Baso % (Auto) % Neut # (Auto) (1.4-6.5) K/uL Lymph # (Auto) (1.2-3.4) K/uL Cecil # (Auto) (0.24-0.82) K/uL Eos # (Auto) (0-0.50) K/uL Baso # (Auto) (0-0.2) K/uL Immature Gran # (Auto) (0.00-0.02) K/uL Sodium (136-145) mmol/L Potassium (3.5-5.1) mmol/L Chloride (98-107) mmol/L Carbon Dioxide (21-32) mmol/L Anion Gap (3-11) BUN (6-23) mg/dl Creatinine (0.6-1.2) mg/dl Est Cr Clr Drug Dosing ml/min Est GFR ( Amer) ml/min Est GFR (Non-Af Amer) ml/min BUN/Creatinine Ratio (10-20) Glucose (70-99(Fasting)) mg/dl POC Glucose 101 H 104 H (70-99) mg/dl Calcium (8.5-10.1) mg/dl SARS-CoV-2, RNA, NAAT (NEGATIVE) Total Time Total Time Spent Total Time Spent (In Minutes): 20 Discharge Plan Discharge Items Patient Disposition: Home - Self-Care Reason For Visit: Right Shoulder Osteoarthritis Discharge Diagnosis: Right shoulder rotator cuff arthropathy Activity: Per Instructions section Non-emergency contact: Surgeon Call non-emergency contact if: you have any medication questions, your pain is not controlled, your pain is concerning for you, you have a fever, your temperature is above 101, your wound has increased redness and your wound has increased drainage Follow-up/Referrals: Carol Taylor CRNP [Primary Care Provider] - Diet: Regular Addtl Attending Provider Instructions: ACTIVITY RECOMMENDATIONS: SELF CARE INSTRUCTIONS AFTER TOTAL SHOULDER ARTHROPLASTY REVERSE A. You may do daily exercises as taught in physical therapy while in hospital. No lifting with the operative arm. B. You are to wear your sling/immobilizer at all times EXCEPT when performing your daily exercises and for hygiene purposes. C. You may perform dry, daily dressing changes. Please keep your incision covered. You may shower 48 hours after surgery. Do not apply soap or any ointment/lotions directly over incision. Do not soak incision in bath tub/swimming pool. D. You may use ice as needed to operative shoulder. You may restart your Methotrexate 2 weeks post operatively. SPECIAL CARE INSTRUCTIONS: VERY IMPORTANT TO READ AND REVIEW A. There are a few signs you need to watch for after you are home. Call [facility] at [phone] if you experience any of the followin. Increased severe shoulder pain. Some pain is expected especially when you exercise. 2. Increased swelling in you shoulder or arm; pain or swelling in either upper extremity. 3. Any fluid drainage from the incision. 4. Shortness of breath or chest pain. B. Please call [facility] at [phone] if you have any questions or concerns about your operation or recovery. C. Call your physician if: 1. Temperature is greater than 101 degrees (F). 2. Pain is not relieved by prescribed pain medications. 3. Increase drainage or redness from incision. 4. Unanswered questions or concerns. FOLLOW UP VISIT: Please call [facility] at [phone] to schedule a follow up appointment with Dr. Garcia or his PA in 12-14 days from your surgery date. Stand-Alone Forms: [facility] [employer], Smoking Cessation Medications and DC Order Prescriptions: New acetaminophen [Tylenol Extra Strength] 500 mg Tablet 1,000 mg PO Q8 Qty: 60 0RF aspirin 81 mg Tablet,Delayed Release (Dr/Ec) 81 mg PO QAM Qty: 30 0RF oxycodone 5 mg Tablet 5 - 10 mg PO .Q4h-6h MDD 6 PRN (Reason: pain) Qty: 30 0RF Rx Instructions: Ongoing therapy, Dr. Garcia supervising Continued multivitamin Tablet 1 tab PO QAM hydroxychloroquine [Plaquenil] 200 mg Tablet 200 mg PO QAM folic acid 3 MG 1 tab PO QAM biotin 500 mcg Capsule 500 mcg PO DAILY cholecalciferol (vitamin D3) [Vitamin D3] 125 mcg (5,000 unit) Tablet 125 mcg PO DAILY pantoprazole [Protonix] 20 mg Tablet,Delayed Release (Dr/Ec) 20 mg PO DAILY fluticasone propionate 50 mcg/actuation [place],Suspension 1 spray INTRANASAL DAILY PRN (Reason: Allergy Symptoms) Rx Instructions: administer into each nostril Discontinued Celebrex 200 MG 1 dose PO QAM methotrexate 15 MG 1 dose WK Discharge Orders: Discharge Order (Routine); Ordered 08/31/22 Ordered By: Mihir Stallings/Other Patient Handouts: Rotator Cuff Tear Admission Data Admit Date/Time: 08/30/22 12:15 Attending Provider: Patric Garcia Admit Provider: Patric Garcia Primary Care Provider: Carol Taylor Other Providers: Wero Barraza Other Interventions: Discharge Summary Assessment (RN) Last Done: 08/31/22 12:50
== END 2022-08-31 13:55 | disposition home or self-care (01) ==
LOC: ASU 07:26 → INTOOBSV 12:15 → 3N 12:15

== ENCOUNTER 2024-06-25 05:35 | Observation (INO) ==
--- NOTE | 2024-05-26 13:00 | PAT Medication Instructions ---
Medication Instructions Date of Service May 26, 2024 Home Medications multivitamin 1 tab PO QAM cholecalciferol (vitamin D3) 125 mcg (5,000 unit) tablet (Vitamin D3) 125 mcg PO QAM fluticasone propionate 50 mcg/actuation nasal spray,suspension 1 spray intranasal DAILY PRN Allergy Symptoms methotrexate (PF) 15 mg/0.6 mL subcutaneous syringe 15 mg subcut WK [id number] 5 mg-zeaxanth 1 mg-bilberry 7.5 mg-herbal capsule (Macular Health Formula) 1 cap PO QAM sitagliptin phosphate 25 mg tablet (Januvia) 25 mg PO QAM calcium carbonate (Tums) 200 mg PO BID PRN Gastric Reflux Crestor 1 tab PO HS acetaminophen 500 mg tablet (Tylenol Extra Strength) 1,000 mg PO Q8 PRN Pain celecoxib 200 mg capsule (Celebrex) 200 mg PO QAM folic acid 1 mg tablet 3 mg PO QAM latanoprost 0.005 % eye drops 1 drp ophthalmic (eye) HS Continue as directed fluticasone propionate 50 mcg/actuation nasal spray,suspension 1 spray intranasal DAILY PRN Allergy Symptoms (if needed) ASK your surgeon for instructions celecoxib 200 mg capsule (Celebrex) 200 mg PO QAM ASK your prescriber and surgeon methotrexate (PF) 15 mg/0.6 mL subcutaneous syringe 15 mg subcut WK STOP taking 2 weeks before surgery [id number] 5 mg-zeaxanth 1 mg-bilberry 7.5 mg-herbal capsule (Macular Health Formula) 1 cap PO QAM DO NOT take the morning of surgery multivitamin 1 tab PO QAM cholecalciferol (vitamin D3) 125 mcg (5,000 unit) tablet (Vitamin D3) 125 mcg PO QAM sitagliptin phosphate 25 mg tablet (Januvia) 25 mg PO QAM calcium carbonate (Tums) 200 mg PO BID PRN Gastric Reflux folic acid 1 mg tablet 3 mg PO QAM Take morning of surgery With a small sip of water, OTHERWISE NOTHING TO EAT OR DRINK AFTER MIDNIGHT: acetaminophen 500 mg tablet (Tylenol Extra Strength) 1,000 mg PO Q8 PRN Pain (if needed) Take evening before surgery latanoprost 0.005 % eye drops 1 drp ophthalmic (eye) HS acetaminophen 500 mg tablet (Tylenol Extra Strength) 1,000 mg PO Q8 PRN Pain (if needed) calcium carbonate (Tums) 200 mg PO BID PRN Gastric Reflux (if needed) Crestor 1 tab PO HS Other Notes If you have any questions please call us at [phone] or [phone] or [phone] or [phone]
--- NOTE | 2024-06-04 14:15 | Anesthesiology Consultation ---
Date of Service June 04, 2024 Assessment & Plan (1) Encounter for pre-operative examination: - Check BSG AM DOS - Infectious disease screening: Per assessment on 06/04/24: No known recent infectious disease contacts or current infectious disease symptoms. - Outpatient joint assessment: Pt currently scheduled for inpatient pathway. If surgeon requests review for outpatient joint pathway, patient is an acceptable candidate for outpatient joint program from anesthesia standpoint pending surgeon's office assessment that patient is motivated, has good support and completes Same Day Joint Program preop requirements. - Previous surgery/anesthesia: * Right TKA (05/30/23): SAB + regional at [facility] * Right reverse TSA (08/30/22): Grade view 1, [place] #3, ETT 7 + regional at [facility] - Anesthesia concern: Patient states that PNB with previous shoulder arthroscopies "did not work/did not work well." Feels improvement in pain control length post-op with Right reverse TSA 08/2022. Patient unsure if she wishes to receive PNB for upcoming surgery. Advised patient to discuss further with anesthesiologist DOS. Chart Review Chart Review: Acceptable Risk for Surgery and Patient seen in Pre Admission Testing Teaching & Discussion Pre-Anesthesia Teaching/Discussion Notes: Instructed NPO after midnight before surgery,except medications with 15 cc of water. Medication instructions provided according to the PAT guidelines. History Surgery Operation Date: 06/25/24 12:35 Proposed Procedures p Left Shoulder Reverse Total Shoulder Arthroplasty - Patric Garcia MD Height/Weight Height: 5 ft 8.5 in Weight: 62.6 kg Allergies Allergy/AdvReac Type Severity Reaction Status Date / Time etanercept [From Enbrel] Allergy Intermediate Rash Verified 05/21/24 15:23 Medications Home Medications Medication Instructions Recorded Confirmed Last Taken multivitamin 1 tab PO QAM 07/31/22 05/21/24 05/23/23 cholecalciferol (vitamin D3) 125 125 mcg PO QAM 08/03/22 05/21/24 05/29/23 10:00 mcg (5,000 unit) tablet (Vitamin D3) fluticasone propionate 50 1 spray intranasal DAILY PRN 08/30/22 05/21/24 08/15/22 mcg/actuation nasal Allergy Symptoms spray,suspension methotrexate (PF) 15 mg/0.6 mL 15 mg subcut WK 05/04/23 05/21/2423 subcutaneous syringe [id number] 5 mg-zeaxanth 1 cap PO QAM 05/04/23 05/21/24 05/29/23 10:00 1 mg-bilberry 7.5 mg-herbal capsule (Macular Health Formula) sitagliptin phosphate 25 mg tablet 25 mg PO QAM 05/04/23 05/21/24 05/29/23 10:00 (Januvia) calcium carbonate (Tums) 200 mg PO BID PRN Gastric Reflux 05/30/23 05/21/24 05/29/23 21:00 Crestor 1 tab PO HS 05/21/24 05/21/24 Unknown acetaminophen 500 mg tablet 1,000 mg PO Q8 PRN Pain 05/21/24 05/21/24 Unknown (Tylenol Extra Strength) celecoxib 200 mg capsule (Celebrex) 200 mg PO QAM 05/21/24 05/21/24 Unknown folic acid 1 mg tablet 3 mg PO QAM 05/21/24 05/21/24 Unknown latanoprost 0.005 % eye drops 1 drp ophthalmic (eye) HS 05/21/24 05/21/24 Unknown Past Medical History Medical History Diabetes mellitus, type 2 NIDDM GERD (gastroesophageal reflux disease) Occasional heartburn Hyperlipidemia Increased pressure in the eye Preventatively using Latanoprost Rheumatoid arthritis Methotrexate weekly injection Scoliosis Superficial thrombosis of leg Hx 1980s Exercise / Class Metabolic Activity II 4-5 Yardwork/Stairs/Walk up hill Past Family History Family History Other FHx: glaucoma No family history of adverse response to anesthesia Past Surgical History Surgical History History of anesthesia reaction "Takes a while to warm up" History of arthroscopic knee surgery Right History of arthroscopy of shoulder BL History of carpal tunnel release Right History of cataract surgery BL History of colonoscopy History of decompression of ulnar nerve Right History of dilatation and curettage History of reverse total replacement of right shoulder joint Right Shoulder Osteoarthritis glenohumeral joint, rotator cuff arthropathy with failed rotator cuff repair, os acromiale, biceps dislocation with tendinopathy biceps tendon. History of right knee joint replacement Right TKA (05/30/23): SAB + regional at [facility] History of surgery Laser treatment varicose veins S/P laparoscopic hysterectomy + BSO with a bladder lift procedure with mesh Past Anesthesia History No Family Hx of Anesthesia Complications and Other (Occasional- "Takes a while to warm up") History of PONV No Hx of PONV and No Hx of Motion Sickness Social History Smoking Status: Never smoker Do You Dip or Chew Tobacco: No Hx Alcohol Use: No Hx Substance Use: No substance use type: does not use Review of Systems Patient denies chest pain, shortness of breath, dyspnea on exertion, fever, chills, cough, wheezing, palpitations. Physical Exam Physical Full cervical extension range of motion. Full TMJ range of motion. TMD 3.5 finger breaths Mallampati Score II Dentition: intact Lungs: clear throughout to auscultation Cardiac: regular rate and rhythm, no murmurs noted Spine: normal Carotid arteries: negative bruit Extremities: no LE edema Lab Results Anesthesia Preop Results Results Anesthesia Widget: PT 10.3 Seconds (9.0-12.0) 06/04/24 PTT 28 Seconds (21-31) 06/04/24 INR 0.9 (0.9-1.1) 06/04/24 Urine Color Yellow 06/04/24 Urine Appearance Clear (Clear) 06/04/24 Urine pH 7.5 (4.5-7.5) 06/04/24 Urine Specific [place] 1.008 (1.000-1.030) 06/04/24 Urine Protein Negative (Negative) 06/04/24 Urine Glucose (UA) Negative (Negative) 06/04/24 Urine Ketones Negative (Negative) 06/04/24 Urine Blood Negative (Negative) 06/04/24 Urine Nitrite Negative (Negative) 06/04/24 Urine Bilirubin Negative (Negative) 06/04/24 Urine Urobilinogen Negative (Negative) 06/04/24 Urine Leukocyte Esterase Negative (Negative) 06/04/24 Blood Type A Positive 06/04/24 Antibody Screen NEGATIVE 06/04/24 Testing Laboratory Results 05/13/24 WBC 3.3 H/H 13.4/41.4 PLATELETS 247 SODIUM 142 POTASSIUM 4.5 CHLORIDE 106 CO2 30 BUN 20 CREATININE 0.66 GLUCOSE 104 HGBA1C 6.6% Electrocardiogram Date: 03/18/24 Findings: + NSR @ (73) Chest X-Ray Date: 06/04/24 FINDINGS: Cardiomediastinal and hilar silhouettes are within normal limits. Lungs are clear. No pneumothorax or pleural effusion. Sigmoidal thoracolumbar scoliosis. Right shoulder arthroplasty. IMPRESSION: No acute process. Cervical Spine x-ray Date: 08/03/2022 FINDINGS: No fractures or subluxations are identified. Degenerative changes are noted in the cervical spine. The alignment is anatomic. Prevertebral soft tissues are within normal limits. IMPRESSION: Degenerative changes without evidence of acute abnormality.
--- NOTE | 2024-06-24 17:25 | History & Physical Report ---
Date of Service June 24, 2024 Assessment & Plan (1) Osteoarthritis of left glenohumeral joint: Plan: End-stage left shoulder glenohumeral osteoarthritis with rotator cuff tendinopathy partial failure of rotator cuff repair. Best treatment options proceed with reverse total shoulder replacement like she had in her opposite shoulder with good outcome. (2) Tendinopathy of left rotator cuff: History of Present Illness Chief Complaint: Chronic left shoulder pain Primary Care Provider: KELLEY Henderson 63-year-old female with end-stage glenohumeral osteoarthritis left shoulder and chronic rotator cuff tear. History of prior rotator cuff surgery. Had successful right reverse shoulder replacement. Proceed with reverse left shoulder replacement. Patient has chronic biceps rupture. Patient denies headaches, sweats, fevers, chills, double vision, blurred vision, cough, sore throat, dysphagia, chest pain, sob, wheezing, n/v/d/c, numbness, tingling, fatigue, urinary symptoms, mood disorders. ROS positive for high cholesterol diabetes anemia spine arthritis acid reflux. Allergies Allergy/AdvReac Type Severity Reaction Status Date / Time etanercept [From Enbrel] Allergy Intermediate Rash Verified 05/21/24 15:23 Home Medications Medication Instructions Recorded Confirmed Type multivitamin 1 tab PO QAM 07/31/22 05/21/24 History cholecalciferol (vitamin D3) 125 125 mcg PO QAM 08/03/22 05/21/24 History mcg (5,000 unit) tablet (Vitamin D3) fluticasone propionate 50 1 spray intranasal DAILY PRN 08/30/22 05/21/24 History mcg/actuation nasal Allergy Symptoms spray,suspension methotrexate (PF) 15 mg/0.6 mL 15 mg subcut WK 05/04/23 05/21/24 History subcutaneous syringe lkpoyumq-pcd-mcjpvb 5 mg-zeaxanth 1 cap PO QAM 05/04/23 05/21/24 History 1 mg-bilberry 7.5 mg-herbal capsule (Macular Health Formula) sitagliptin phosphate 25 mg tablet 25 mg PO QAM 05/04/23 05/21/24 History (Januvia) calcium carbonate (Tums) 200 mg PO BID PRN Gastric Reflux 05/30/23 05/21/24 History Crestor 1 tab PO HS 05/21/24 05/21/24 History acetaminophen 500 mg tablet 1,000 mg PO Q8 PRN Pain 05/21/24 05/21/24 History (Tylenol Extra Strength) celecoxib 200 mg capsule (Celebrex) 200 mg PO QAM 05/21/24 05/21/24 History folic acid 1 mg tablet 3 mg PO QAM 05/21/24 05/21/24 History latanoprost 0.005 % eye drops 1 drp ophthalmic (eye) HS 05/21/24 05/21/24 History Past Med/Surg History Problem List (Updated 06/24/24 @ 17:24 by Patric Garcia MD) Tendinopathy of left rotator cuff Osteoarthritis of left glenohumeral joint Encounter for pre-operative examination Medical History Diabetes mellitus, type 2 NIDDM Hyperlipidemia GERD (gastroesophageal reflux disease) Occasional heartburn Increased pressure in the eye Preventatively using Latanoprost Rheumatoid arthritis Methotrexate weekly injection Scoliosis Superficial thrombosis of leg Hx 1980s Surgical History History of anesthesia reaction "Takes a while to warm up" History of right knee joint replacement Right TKA (05/30/23): SAB + regional at [facility] S/P laparoscopic hysterectomy + BSO with a bladder lift procedure with mesh History of dilatation and curettage History of reverse total replacement of right shoulder joint Right Shoulder Osteoarthritis glenohumeral joint, rotator cuff arthropathy with failed rotator cuff repair, os acromiale, biceps dislocation with tendinopathy biceps tendon. History of surgery Laser treatment varicose veins History of decompression of ulnar nerve Right History of carpal tunnel release Right History of arthroscopy of shoulder BL History of arthroscopic knee surgery Right History of cataract surgery BL History of colonoscopy Family History Other FHx: glaucoma No family history of adverse response to anesthesia Social History Smoking Status: Never smoker Second Hand Exposure: No; Do You Dip or Chew Tobacco: No; Tobacco Cessation Education Requested by Patient: No Hx Alcohol Use: No Hx Substance Use: No Preferred Language: Slovenian Communication Ability: Effective 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 Beliefs That Will Affect Care: None Current Living Situation: Spouse Other Information That Helps Us Care for You: No Feels Safe at Home: Yes Safety Concerns: Feels Safe At This Time Assistive Devices: Contacts and Glasses Review of Systems All systems reviewed & are unremarkable except as noted in HPI & below Physical Exam Constitutional: WD/WN, vitals as above Respiratory: normal respiratory effort; no respiratory distress Cardiovascular: Rate/Rhythm: regular rate and regular rhythm Musculoskeletal: Painful left shoulder range of motion with 170 degrees forward flexion and abduction and 90 degrees external rotation. [id number] bone crepitation glenohumeral joint. Rotator cuff strength is weak in abduction. Skin: no rashes, warm and dry Neurologic: normal touch/pain/proprioception Psychiatric: A+Ox3, euthymic affect Results & Data Diagnostic Findings MRI demonstrates advanced glenohumeral osteoarthritis and previous anchors from rotator cuff repair with some least high-grade partial tearing and marked tendinopathy of the rotator cuff with chronic biceps rupture. Radiographs d emonstrate grade 4 glenohumeral osteoarthritis with typical inferior humeral osteophyte [id number].
[2024-06-25] MEDS: FAMOTIDINE 20 MG TAB PO SCH (06:09)
[2024-06-25] MEDS: CeleBREX 200 MG CAP PO SCH ×2 (06:09→20:47)
[2024-06-25] MEDS: ACETAMINOPHEN 500 MG TAB PO SCH ×2 (06:09→13:03)
[2024-06-25] MEDS: LR 15ML/HR IV SCH (06:09)
[2024-06-25] MEDS: LR 60ML/HR IV SCH (06:10)
[2024-06-25] MEDS: GABAPENTIN 300 MG CAP PO SCH (06:10)
[2024-06-25] MEDS: METOCLOPRAMIDE HCL 10 MG TABLET PO SCH (06:10)
[2024-06-25] MEDS ORDERED: BUPIVACAINE 0.5 % 5 MG/1 ML PF 10ML VIAL ONE (06:30)
[2024-06-25] MEDS ORDERED: SODIUM CHLORIDE 0.9% PF INJ 10 ML VIAL ONE (06:30)
[2024-06-25] MEDS ORDERED: ROCURONIUM BROMIDE 10 MG/ML 5 ML VIAL IV ONE ×2 (06:46→08:36)
[2024-06-25] MEDS ORDERED: MIDAZOLAM HCL 1 MG/ML 2ML VIAL ONE ×2 (06:46→07:11)
[2024-06-25] MEDS ORDERED: fentaNYL citrate PF 100 MCG/2 ML VIAL ONE (06:46)
[2024-06-25] MEDS ORDERED: PROPOFOL IV EMULSION 10 MG/ML 20 ML VIAL IV ONE (06:46)
[2024-06-25] MEDS ORDERED: LIDOCAINE 2% 2 ML VIAL/AMP(20MG/ML) INFIL ONE (06:46)
[2024-06-25] MEDS ORDERED: PROMETHAZINE HCL 6.25 MG in SODIUM CHLORIDE 0.9% 50 ML IV PRN (06:54)
[2024-06-25] MEDS ORDERED: HYDROmorphone INJ 1 MG/ML SYRINGE IV PRN (06:54)
[2024-06-25] MEDS ORDERED: ATROPINE SULFATE 0.1 MG/ML 10ML SYR IV PRN (06:54)
[2024-06-25] MEDS ORDERED: ONDANSETRON INJ 2 MG/ML 2 ML VIAL IV PRN ×2 (06:54→12:00)
--- NOTE | 2024-06-25 07:05 | History & Physical Bridge Note ---
Date of Service June 25, 2024 History & Physical Bridge Note I have examined the patient, reviewed the History & Physical and in the interval since the performance of the History & Physical I have noted the following changes of clinical significance: no changes noted
[2024-06-25] MEDS: TRANEXAMIC ACID 1,000 MG **IV Pre-op IV SCH (07:09)
[2024-06-25] MEDS: ceFAZolin 2000MG 2,000 MG/15 ML SYR IV SCH (07:20)
[2024-06-25] MEDS ORDERED: PHENYLEPHRINE 100MCG/ML 5ML SYR ONE ×2 (07:40→09:15)
[2024-06-25] MEDS ORDERED: ONDANSETRON INJ 2 MG/ML 2 ML VIAL ONE (09:16)
[2024-06-25] MEDS ORDERED: DEXAMETHASONE SOD INJ 4 MG/ML VIAL ONE (09:16)
[2024-06-25] MEDS: TRANEXAMIC ACID 1,000 MG **IV Intra-op IV SCH (09:32)
[2024-06-25] MEDS ORDERED: SUGAMMADEX SODIUM 200 MG/2 ML VIAL IV ONE (09:42)
--- NOTE | 2024-06-25 10:34 | Operative Report ---
Post Operative Report Pre & Post Diagnosis Operation Date: 06/25/24 07:15 Pre-Op Diagnosis: Left Shoulder: Glenohumeral Joint Osteoarthritis, rotator cuff arthropathy, prior rotator cuff repair, rotator cuff tendinopathy, high-grade partial tear, prior proximal long head biceps rupture.. Post-Op Diagnosis: same I identified the patient and participated in the time-out.: Yes Procedure Operation Date: 06/25/24 07:15 Actual Procedures p Left Reverse Total Shoulder Arthroplasty, excision deep hardware (multiple suture anchors suture material )- Patrci Garcia MD Surgeon Patric Garcia MD Outbound Telemarketing Representative Cezar LARSEN Estimated Blood Loss 100 Findings Consistent with Post-Op Diagnosis Specimens Humeral head cut Drains 2 hemovac Anesthesia Type General Regional Complications none Disposition Disposition: Recovery Room Indications 63-year-old female with history of rotator cuff surgery in the past left shoulder. She has had progressive pain weakness and imaging demonstrates [id number]-gf-[id number] glenohumeral joint with some bone wear on the glenoid with inferior humeral osteophyte and MRI demonstrating chronic rotator cuff tendinopathy poor tendon tissue with high-grade possible full-thickness rotator cuff tear previous anchors from prior surgery with cystic changes and humeral head. History of successful reverse shoulder replacement on her right shoulder for similar condition. Description of Procedure The patient was taken to the operating room and anesthetized under regional block and general anesthetic. The patient was positioned on the operating table in a 30 beach chair position with a towel roll under the medial border of the left scapula. The arm was draped free to be able to manipulate the shoulder as needed. The left upper extremity was prepped and draped in usual sterile fashion. Exam demonstrated good passive range of motion with 170 degrees forward flexion and 90 degrees external rotation. Clinically has a subdeltoid bursal effusion. [id number] crepitation. An anterior deltopectoral approach was performed. A longitudinal incision was made in the deltopectoral interval. The skin was incised sharply. Subcutaneous flaps were elevated off the fascia. The cephalic vein was dissected out and retracted lateral with the deltoid. The clavipectoral fascia was divided at the lateral margin of the conjoined tendon and extended up to the CA ligament. The following findings were noted biceps tendon had ruptured and retracted but there was a small end of the biceps at the level of the pectoralis tendon attached to some chronically inflamed biceps tendon sheath that extended up to the bicipital groove. The subscapularis was intact. There was thin scarred abnormal appearing supraspinatus tendon tissue. There was still infraspinatus tendon tissue with undersurface tearing and intact teres minor. There were old sutures in the upper subscapularis and anterior supraspinatus tissue. The upper centimeter of the pectoralis was released for inferior exposure. A self-retaining retractor was placed. The biceps tendon findings demonstrated[]. the biceps tendon remnant was tenodesed to the pectoralis tendon with #2 FiberWire placed in a whipstitch to keep the biceps from further retraction.. The proximal biceps tendon sheath was resected. The subscapular muscle fibers were split longitudinally at the level of the circumflex vessels. The circumflex vessels were identified and tied off with silk ties and divided laterally. A Kitner elevator was used to free up the inferior fibers of the subscapularis off of the capsule. The axillary nerve was identified with a tug test and protected with a blunt John retractor between the nerve and the capsule. The subscapularis tendon was then taken down off of the lesser tuberosity subperiosteally, a Vicryl traction suture was placed and a subperiosteal dissection was performed along the neck of the humerus as the arm was gradually externally rotated exposing the humeral head. The humeral head findings demonstrated eburnated bone with some flattening of the humeral head and large inferior osteophytes. There were large lateral osteophytes along the lesser tuberosity as well.. retractors were readjusted and the inferior osteophytes were all resected using an artist chisel. Remainder of osteophytes removed with a rongeur. Sutures in the subscapularis were removed as well as the A Panda elevator was used to assist in releasing the capsule of the neck of the humerus. The capsule was divided with Garcia scissors down to the glenoid released off the anterior glenoid and the rotator interval was released to meet the capsular release and a 360 release of the subscapularis was accomplished. Scarred remnants of the supraspinatus tissue. Some of this was debrided. A Fukuda retractor was placed into the joint retracting the humeral head posterior. Glenoid findings demonstrated B2 glenoid at the far posterior aspect with bone wear of the glenoid and retroversion ,there was still some thin layer of articular cartilage at the anteriormost aspect of the glenoid. The labrum remnants were I had to remove multiple anchors which appear to be peek material resected. an anterior-inferior and posterior inferior capsular release were performed with electrocautery and a Panda elevator on bone with the axillary nerve protected inferiorly by the retractor. Attention was then taken to the humeral preparation. The cutting guide was placed into the humeral head. It was positioned at 20 of retroversion. Oscillating saw was used to resect the humeral head giving the cut above the level of the posterior rotator cuff insertion site. The humerus was then prepared for the stem.. There were various anchors and suture material that had removed from within the metaphysis area. Some of the hard sclerotic bone had to be removed within the canal to allow broaching. I used the ascend flex stem from [employer]. The centering awl followed by the sizing broaches were used followed by trial broaches up to a size 3B Long which had the appropriate fit and fill. The appropriate sized cut protector was placed. The humerus was then retracted posterior to the glenoid. The glenoid was sized for a 25 baseplate. The guide for the baseplate was positioned in a 10 inferior tilt and the central drill hole was made. The bone was extremely hard and sclerotic. The reamer for the 25 baseplate was used. The central drill was widened for the peg. The hydroxyapatite coated 25 mm standard post baseplate was impacted into position after placing some bone graft from the humeral head along the posterior aspect of the glenoid. The base plate was transfixed with superior and inferior locking screws and anterior and posterior compression screws with stable fixation. The fan reamer was used for the 36 millimeter glenoid sphere. After irrigation the 36 mm centered glenoid sphere was impacted onto the baseplate and the security screw was tightened. Attention was taken back to the humerus. The cut protector was removed and the +0 high offset humeral tray trial was assembled to the trial stem rotated approp riately to get bony coverage and then screwed in position. A trial reduction was performed. A +9/36 mm reversed trial insert demonstrated good stability and no shuck. The trials were removed. 3 drill holes are made into the harder bone in the bicipital groove area and 3 #5 FiberWire sutures were placed transosseously. The canal was irrigated with pulsatile saline solution. The final component was assembled. The final component was [employer] ascend Flex 3B Long stem assembled to the +0 high offset tray and a +9/36 mm polyethylene reversed insert. This was then impacted into the humerus with a tight press- fit. It was reduced to the glenoid sphere. Stability was verified. Subscapularis was repaired with the #5 FiberWire sutures using Won-Nishant suture technique. Lateral row soft tissue repair was performed with #2 FiberWire [id number] sutures. The pectoralis was repaired with #2 FiberWire [id number]-[id number] sutures . The arm was taken through a range of motion which demonstrated 150 degrees forward flexion 90 degrees abduction and 70 degrees internal and external rotation. The implant was stable through the range of motion tested. The wound was copiously irrigated with Xperience solution. 2 Hemovac drains were placed. The deltopectoral interval was closed with [id number] #1 Vicryl sutures. The subcutaneous tissues were closed with 2-0 Vicryl sutures. The skin was closed with surgical nikolai. Sterile Silverlon dressing was applied and a shoulder immobilizer. Cezar LARSEN my physician front end assistant acted as starch treating assistant throughout the procedure .He performed functions including patient positioning, arm positioning, prepping and draping, soft tissue retraction, instrument management, suture management and performed the subcutaneous and skin closure and will participate in the postoperative care of the patient. I attest to the content of the Intraoperative Record and any orders documented therein. Any exceptions are noted below.
--- NOTE | 2024-06-25 11:14 | XRay Report ---
XR shoulder LT min 2V routine CLINICAL HISTORY: Post shoulder surgery COMPARISON: None FINDINGS: Alignment of the reverse total left shoulder arthroplasty is anatomic. No periprosthetic f racture or unexpected radiopaque foreign body is present. There are drains and skin nikolai. IMPRESSION: Expected findings following reverse total left shoulder arthroplasty. ACT 112: Negative or not required by law. Electronically signed by: Roberto Calderon M.D. 06/25/2024 11:13 AM
--- NOTE | 2024-06-25 11:33 | Anesthesiology Progress Note ---
Date of Service June 25, 2024 Anesthesia Post Procedure Vital Signs Vital Signs: Temp Pulse Pulse Resp BP Pulse Ox O2 Del Method 06/25/24 11:25 87 12 124/85 96 Room Air 06/25/24 11:15 77 12 131/88 97 Room Air 06/25/24 11:05 77 12 131/88 97 Room Air 06/25/24 10:55 36.5 C 79 12 130/87 97 Room Air 06/25/24 10:45 78 14 138/91 96 Room Air 06/25/24 10:35 77 12 133/90 100 Oxymask 06/25/24 10:25 80 12 128/90 100 Oxymask 06/25/24 10:15 36.1 C L 85 12 124/85 97 Oxymask 06/25/24 05:59 36.4 C L 66 20 119/82 98 Room Air O2 Flow Rate 06/25/24 11:25 06/25/24 11:15 06/25/24 11:05 06/25/24 10:55 06/25/24 10:45 06/25/24 10:35 4 06/25/24 10:25 4 06/25/24 10:15 6 06/25/24 05:59 Transfer of Care Handoff Completed per policy Notes Mental Status: alert / awake / arousable Patient Amnestic to Procedure: Yes Nausea / Vomiting: adequately controlled Pain: adequately controlled Airway Patency, RR, SpO2: stable & adequate BP & HR: stable & adequate Hydration State: stable & adequate Anesthetic Complications: no major complications apparent
[2024-06-25] MEDS ORDERED: FLUTICASONE PROPIONATE NA SPR 16 GM BTL PRN (12:00)
[2024-06-25] MEDS ORDERED: CALCIUM CARBONATE 500 MG CHEWABLE TAB PO PRN (12:00)
[2024-06-25] MEDS ORDERED: METHOTREXATE SQ SCH (12:00)
[2024-06-25] MEDS ORDERED: METOCLOPRAMIDE HCL INJ 5 MG/ML 2 ML VIAL IV PRN (12:00)
[2024-06-25] MEDS ORDERED: HYDROmorphone INJ 0.5 MG/0.5 ML SYR IV PRN (12:00)
[2024-06-25] MEDS ORDERED: bisacodyL 10 MG SUPP PR PRN (12:00)
[2024-06-25] MEDS ORDERED: NALOXONE HCL 0.4 MG/1 ML VIAL/CARP IV PRN (12:00)
[2024-06-25] MEDS ORDERED: MAGNESIUM HYDROXIDE SUSP 30 ML UDC PO PRN (12:00)
[2024-06-25] MEDS ORDERED: PHARMACY GLYCEMIC MGMT CONSULT PRN (12:00)
[2024-06-25] MEDS ORDERED: ALUMINUM/MAGNESIUM SUSP 30 ML UDC PO PRN (12:00)
[2024-06-25] MEDS ORDERED: oxyCODONE HCL IR 5 MG TAB (IMMEDIATE RELEASE) PO PRN (12:00)
[2024-06-25] MEDS ORDERED: diphenhydrAMINE Capsule 25 MG CAP PO PRN (12:00)
--- NOTE | 2024-06-25 12:32 | Hospitalist Consultation ---
Date of Consultation June 25, 2024 Assessment & Plan (1) Status post total shoulder replacement: VTE / Pain / Bowel management per primary orthopedic team (2) Diabetes mellitus, type 2: HbA1C ?6.7 as outpatient per patient recollection Pharmacy consulted for glycemic control whilt inpatient Restart on Januvia as outpatient (3) GERD (gastroesophageal reflux disease): No longer on pantoprazole and currently without heartburn. Will restart only if symptoms develop. 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 (5) Hyperlipidemia: Continue rosuvastatin Plan Thank you for the consult. We will continue to follow along with you History of Present Illness Reason for Consultation: post op medical management Attending Physician: Patric Garcia MD History of Present Illness Leda Mendez is a 63 year old female POD#0 left reverse total shoulder arthroplasty performed earlier today by Dr Garcia. No acute concerns or questions from the patient. Allergies Allergy/AdvReac Type Severity Reaction Status Date / Time etanercept [From Enbrel] Allergy Intermediate Rash Verified 06/25/24 05:55 Home Medications Medication Instructions Recorded Confirmed Type multivitamin 1 tab PO QAM 07/31/22 06/25/24 History cholecalciferol (vitamin D3) 125 125 mcg PO QAM 08/03/22 06/25/24 History mcg (5,000 unit) tablet (Vitamin D3) fluticasone propionate 50 1 spray intranasal DAILY PRN 08/30/22 06/25/24 History mcg/actuation nasal Allergy Symptoms spray,suspension methotrexate (PF) 15 mg/0.6 mL 15 mg subcut WK 05/04/23 06/25/24 History subcutaneous syringe [id number] 5 mg-zeaxanth 1 cap PO QAM 05/04/23 06/25/24 History 1 mg-bilberry 7.5 mg-herbal capsule (Macular Health Formula) sitagliptin phosphate 25 mg tablet 25 mg PO QAM 05/04/23 06/25/24 History (Januvia) calcium carbonate (Tums) 200 mg PO BID PRN Gastric Reflux 05/30/23 06/25/24 History Crestor 1 tab PO HS 05/21/24 06/25/24 History acetaminophen 500 mg tablet 1,000 mg PO Q8 PRN Pain 05/21/24 06/25/24 History (Tylenol Extra Strength) celecoxib 200 mg capsule (Celebrex) 200 mg PO QAM 05/21/24 06/25/24 History folic acid 1 mg tablet 3 mg PO QAM 05/21/24 06/25/24 History latanoprost 0.005 % eye drops 1 drp ophthalmic (eye) HS 05/21/24 06/25/24 History Patient History Medical History Diabetes mellitus, type 2 NIDDM Hyperlipidemia GERD (gastroesophageal reflux disease) Occasional heartburn Increased pressure in the eye Preventatively using Latanoprost Rheumatoid arthritis Methotrexate weekly injection Scoliosis Superficial thrombosis of leg Hx 1980s Surgical History History of anesthesia reaction "Takes a while to warm up" History of right knee joint replacement Right TKA (05/30/23): SAB + regional at [facility] S/P laparoscopic hysterectomy + BSO with a bladder lift procedure with mesh History of dilatation and curettage History of reverse total replacement of right shoulder joint Right Shoulder Osteoarthritis glenohumeral joint, rotator cuff arthropathy with failed rotator cuff repair, os acromiale, biceps dislocation with tendinopathy biceps tendon. History of surgery Laser treatment varicose veins History of decompression of ulnar nerve Right History of carpal tunnel release Right History of arthroscopy of shoulder BL History of arthroscopic knee surgery Right History of cataract surgery BL History of colonoscopy Family History Other FHx: glaucoma No family history of adverse response to anesthesia Social History Smoking Status: Never smoker Second Hand Exposure: No; Do You Dip or Chew Tobacco: No; Tobacco Cessation Education Requested by Patient: No Hx Alcohol Use: No Hx Substance Use: No Preferred Language: Monegasque Communication Ability: Effective Rigger Chief Required: No Beliefs That Will Affect Care: None Current Living Situation: Spouse Other Information That Helps Us Care for You: No Feels Safe at Home: Yes Safety Concerns: Feels Safe At This Time Assistive Devices: Contacts and Glasses Review of Systems Review of Systems: All systems reviewed & are unremarkable except as noted in HPI & below Physical Exam Constitutional: WD/WN, vitals as above Respiratory: normal respiratory effort, lungs clear to auscultation Cardiovascular: RRR, no murmur, no edema Gastrointestinal (Abdomen): normal bowel sounds, soft, nontender, no hepatosplenomegaly Skin: no rashes, warm and dry Results & Data Results & Data Vital Signs (Past 12 Hours) Vital Signs Temp Pulse Pulse Resp BP Pulse Ox O2 Del Method 06/25/24 12:00 36.8 C 91 H 18 123/82 95 Room Air 06/25/24 11:40 90 12 127/82 96 Room Air 06/25/24 11:25 87 12 124/85 96 Room Air 06/25/24 11:15 77 12 131/88 97 Room Air 06/25/24 11:05 77 12 131/88 97 Room Air 06/25/24 10:55 36.5 C 79 12 130/87 97 Room Air 06/25/24 10:45 78 14 138/91 96 Room Air 06/25/24 10:35 77 12 133/90 100 Oxymask 06/25/24 10:25 80 12 128/90 100 Oxymask 06/25/24 10:15 36.1 C L 85 12 124/85 97 Oxymask 06/25/24 05:59 36.4 C L 66 20 119/82 98 Room Air O2 Flow Rate 06/25/24 12:00 06/25/24 11:40 06/25/24 11:25 06/25/24 11:15 06/25/24 11:05 06/25/24 10:55 06/25/24 10:45 06/25/24 10:35 4 06/25/24 10:25 4 06/25/24 10:15 6 06/25/24 05:59 PG Care Time/CCT Total # of Minutes Spent Total Time Spent with Patient: Total time spent is greater than 50% in coordination of care (as documented) at patient's floor/unit and/or counseling patient: Coding Level of Care Code 44073 IN/OBS CONSULT LVL 3,45M Diagnoses Status post total replacement of left shoulder Z96.612 Laterality: left Diabetes mellitus, type 2 E11.9 GERD (gastroesophageal reflux disease) K21.9 Rheumatoid arthritis M06.9 Hyperlipidemia E78.5 (1) Status post total shoulder replacement Laterality: left Qualified Code(s): Z96.612 - Presence of left artificial shoulder joint
[2024-06-25] MEDS ORDERED: GLUCOSE 40% GEL 15 GM TUBE PO PRN (12:45)
[2024-06-25] MEDS ORDERED: GLUCAGON FOR INJ 1 MG VIAL SQ PRN (12:45)
[2024-06-25] MEDS ORDERED: GLUCOSE 10 TAB/TUBE PO PRN (12:45)
[2024-06-25] MEDS ORDERED: CARBOHYDRATES FOR HYPOGLYCEMIA PO PRN (12:45)
[2024-06-25] MEDS ORDERED: DEXTROSE 50% 50 ML SYRINGE IV PRN (12:45)
[2024-06-25] MEDS: INSULIN ASPART PER UNIT CHARGE SC SCH (13:00)
--- NOTE | 2024-06-25 14:08 | Pharmacy Report ---
Pharmacy Glycemic Short Note 2 - Date of Service June 25, 2024 - Glycemic Short BSG Results (Last 24 hours): 06/25/24 06/25/24 06/25/24 06:04 10:18 12:41 POC Glucose 111 H 121 H 121 H OUTPATIENT ANTIDIABETIC REGIMEN: * Januvia 25 mg PO qAM. No insulin or any other antidiabetic meds. ASSESSMENT: * Leda Mendez is a 63 yo F w/hx of DM, GERD, RA; who is POD0 left shoulder reverse arthroplasty. Pharmacy was consulted for glycemic management. * last A1c was back in Jul 2022 and was 6.7. Patients BSG preop today was 111 mg/dL and 121 mg/dL postop, around lunch. * Patient got 1 dose of IV dexamethasone 8 mg preop with no other doses ordered postop PLAN FOR INPATIENT GLYCEMIC CONTROL: * Hold outpatient oral diabetes medications * Basal insulin * no basal insulin for now * Bolus insulin * NovoLog per scale ACHS or Q6hrs while NPO * Goal Range: Low 110 mg/dL - High 140 mg/dL * Correction Factor: 30 mg/dL/unit * Nutritional / Prandial insulin per carb ratio of 1 unit per 10 grams CHO consumed * A1c ordered for tomorrow morning
[2024-06-25] MEDS: ceFAZolin 1000MG 1,000 MG/7.5 ML SYR IV SCH (16:06)
[2024-06-25] MEDS: TRANEXAMIC ACID / 0.7% NACL 1,000 MG/100 ML BAG IV SCH (17:15)
[2024-06-25] MEDS: SENNA 8.6 MG TAB PO SCH (20:47)
[2024-06-25] MEDS: ROSUVASTATIN CALCIUM 5 MG TAB PO SCH (20:47)
[2024-06-25] MEDS: DOCUSATE SODIUM 100 MG CAP PO SCH (20:47)
[2024-06-25] MEDS: LATANOPROST 0.005% OP SOLN 2.5 ML BTL OP SCH (20:48)
[2024-06-26] MEDS: KETOROLAC TROMETHAMINE 15 MG/ML VIAL IV PRN (04:19)
[2024-06-26 04:43] VITALS: O2SAT 96
[2024-06-26 06:53] LABS: Basophils # (auto) 0.02 K/uL (0.00-0.20); Basophils % (auto) 0.4 %; Eosinophils # (auto) 0.04 K/uL (0.00-0.50); Eosinophils % (auto) 0.7 %; Hematocrit (blood only) 37.3 % (37.0-47.0); Hemoglobin 12.4 g/dl (12.0-16.0); Immature Granulocytes # (auto) 0.03 K/uL (0.01-0.20); Immature Granulocytes % (auto) 0.5 %; Lymphocytes # (auto) 1.34 K/uL (1.20-3.40); Lymphocytes % (auto) 23.6 %; Mean Corpuscular Hemoglobin 29.5 pg (25.0-34.0); Mean Corpuscular Hgb Conc 33.2 g/dL (32.0-36.0); Mean Corpuscular Volume 88.6 fL (80.0-100.0); Mean Platelet Volume 9.1 fL (9.4-12.4); Monocytes # (auto) 0.62 K/uL (0.11-0.59); Monocytes % (auto) 10.9 %; Neutrophils # (auto) 3.64 K/uL (1.40-6.50); Neutrophils % (auto) 63.9 %; Platelet Count 233 K/uL (130-400); RDW Coefficient of Variation 14.6 % (11.5-14.5); RDW Standard Deviation 47.2 fL (36.4-46.3); Red Blood Count 4.21 M/uL (4.20-5.40); White Blood Count 5.69 K/ul (4.8-10.8)
[2024-06-26 07:20] LABS: BUN Creatinine Ratio 23.5 (10-20); Calcium 8.8 mg/dl (8.6-10.3); Creatinine Clr Calc Pharmacy 80.3 ml/min; Potassium 3.6 mmol/L (3.5-5.1)
[2024-06-26 07:40] LABS: Estimated Average Glucose 146 mg/dl; Hemoglobin A1C 6.7 % (4.5-5.6)
[2024-06-26 08:02] VITALS: BP 122/71; PULSE 83; RESP 16; TEMP 97.9
--- NOTE | 2024-06-26 08:09 | Orthopedic Progress Note ---
Date of Service June 26, 2024 Assessment & Plan (1) Osteoarthritis of left glenohumeral joint: Plan: End-stage left shoulder glenohumeral osteoarthritis with rotator cuff tendinopathy partial failure of rotator cuff repair. Postop day 1 reverse shoulder replacement left shoulder. Patient okay for discharge today. Will discontinue drain and maintain Silverlon dressing. Patient does not want to take any narcotics as he can take ibuprofen and Tylenol for postoperative pain. She is going to follow-up in 2 weeks for staple removal. (2) Tendinopathy of left rotator cuff: Admission and Anticipated Discharge Date Admission Date: June 25, 2024 Subjective No complaints doing well Review of Systems Review of Systems: Noncontributory Physical Exam Musculoskeletal: Good circulation and hand patient can move her fingers well. Dressing dry and intact. Results & Data Vital Signs (Past 12 Hours) Vital Signs Temp Pulse Pulse Resp BP Pulse Ox O2 Del Method 06/26/24 08:01 36.6 C 83 16 122/71 96 Room Air 06/26/24 04:42 36.4 C L 79 18 117/71 96 Room Air 06/26/24 00:54 37 C 85 20 104/65 95 Room Air 06/26/24 00:45 36.9 C 87 18 113/72 95 Room Air 06/25/24 20:16 36.6 C 76 16 111/72 96 Room Air Diagnostic Findings Well aligned left total shoulder replacement reversed implant
[2024-06-26] MEDS: FOLIC ACID 1 MG TAB PO SCH (08:23)
[2024-06-26] MEDS: CHOLECALCIFEROL 125 MCG (5,000 UNITS) TAB PO SCH (08:23)
[2024-06-26] MEDS: MULTIVITAMIN TAB PO SCH (08:24)
[2024-06-26] MEDS: ASPIRIN 325 MG ECTAB PO SCH (08:24)
--- NOTE | 2024-06-26 08:45 | Hospitalist Progress Note ---
Date of Service June 26, 2024 Assessment & Plan (1) Status post total shoulder replacement: Plan: s/p Left Reverse Total Shoulder Arthroplasty, excision deep hardware (multiple suture anchors suture material )- Patric Garcia MD on 06/25. EBL 100cc VTE / Pain / Bowel management per primary orthopedic team (2) Diabetes mellitus, type 2: Plan: HbA1C ?6.7 as outpatient per patient recollection --> repeat same 6.7 and pharmacy on consult while inpatient Restart Januvia as outpatient (3) GERD (gastroesophageal reflux disease): Plan: No longer on pantoprazole and currently without heartburn. Will restart only if symptoms develop. (4) Rheumatoid arthritis: Plan: Methotrexate on hold for operation, restart per her nutrition partner recommendation - planning on 2 weeks post operatively No acute joint flare up. (5) Hyperlipidemia: Plan: Continue rosuvastatin Plan Thank you for the consult. We will continue to follow along with you Admission and Anticipated Discharge Date Admission Date: June 25, 2024 Results & Data Results & Data Vital Signs (Past 12 Hours) Vital Signs Temp Pulse Pulse Resp BP Pulse Ox O2 Del Method 06/26/24 08:01 36.6 C 83 16 122/71 96 Room Air 06/26/24 04:42 36.4 C L 79 18 117/71 96 Room Air 06/26/24 00:54 37 C 85 20 104/65 95 Room Air 06/26/24 00:45 36.9 C 87 18 113/72 95 Room Air Laboratory Results 06/26/24 06:26 06/26/24 06:26 A1c 6.7 PG Care Time/CCT Total # of Minutes Spent Total Time Spent with Patient: Total time spent is greater than 50% in coordination of care (as documented) at patient's floor/unit and/or counseling patient: Coding Diagnoses Status post total replacement of left shoulder Z96.612 Laterality: left Diabetes mellitus, type 2 E11.9 GERD (gastroesophageal reflux disease) K21.9 Rheumatoid arthritis M06.9 Hyperlipidemia E78.5 (1) Status post total shoulder replacement Laterality: left Qualified Code(s): Z96.612 - Presence of left artificial shoulder joint
[2024-06-26] MEDS ORDERED: NON-FORMULARY MEDICATION (Mv-Mn-Lutein-Zeax-Bilber-Hb277 [Macular Health Formula] 5-1-7.5 PO SCH (09:00)
[2024-06-26] MEDS ORDERED: SITagliptin PHOSPHATE 25 MG TAB PO SCH (09:00)
--- NOTE | 2024-06-26 11:05 | Communication Note ---
Date of Service: June 26, 2024 Stopped by to see patient this morning, dressed and ready to go home. Pain controlled. Wanting to avoid opiates and going to use APAP/ibuprofen. Methotrexate on hold for 2 weeks. No need for official bill today. Labs/VSS stable and patient doing well. Please call with any questions/concerns.
== END 2024-06-26 12:01 | disposition home or self-care (01) ==
LOC: ASU 05:35 → 3E 05:35